=== PATIENT | male | born 1995 | race Caucasian/White ===

== ENCOUNTER 2018-02-11 20:23 | Emergency (ER) | END 2018-02-11 23:45 | disposition home or self-care (01) ==

== ENCOUNTER 2019-02-12 19:03 | Emergency (ER) | payer OTHER ==
[~2019-02-12] VITALS: Ht 170.2 cm; Wt 75.7 kg
[~2019-02-12 19:03] MED LIST: ACET500C5 PO; D-ME473S2 PO; IBUP-1542 PO; ONDA4TAB14 PO
[2019-02-12 19:05] VITALS: BP 149/86; PULSE 87; RESP 20; Ht 170.2 cm; Wt 75.7 kg
[2019-02-12] MEDS ORDERED: ACETAMINOPHEN 500 MG TAB PO STA (19:59)
== END 2019-02-12 20:22 | disposition home or self-care (01) ==
LOC: FTE 19:03
DX: R05 Cough (principal); J45.909 Unspecified asthma, uncomplicated
CPT/HCPCS: 99283